=== PATIENT | female | born 1955 | race Caucasian/White ===

== ENCOUNTER 2017-05-26 13:15 | Inpatient (IN) | payer OTHER ==
[~2017-05-26] VITALS: Ht 162.6 cm; Wt 90.7 kg
[~2017-05-26 13:15] MED LIST: BYSTOLIC10 M1 PO; CRESTOR10 M1 PO; GOOD SENSE ASP325 MG PO; PAROXETINE HCL40 M1 PO; PERCOCET 325 MG1 TA2 PO; VALIUM5 M1 PO
--- NOTE | 2017-05-26 13:25 | ED DYSPNEA/ASTHMA COMPLAINT ---
History of Present Illness General Chief Complaint: Dyspnea (COPD, CHF, Other) Stated Complaint: FLU VS PNA Source: patient, EMS Exam Limitations: no limitations Vital Signs & Intake/Output Vital Signs & Intake/Output ED Intake and Output 05/29 0000 05/28 1200 Intake Total 0 Output Total Balance 0 Intake, IV 0 Intake, Oral 0 Number 0 Bowel Movements Allergies Coded Allergies: NO KNOWN ALLERGIES (07/17/11) Reconcile Medications Nebivolol HCl (Bystolic) 10 MG TABLET 1 TAB PO DAILY HEART (Reported) Nicotine (Nicotine Patch) 14 MG/24 HOUR PATCH.TD24 14 MG TOP DAILY Smoking cessation . Nicotine (Nicorelief) 2 MG GUM 2 MG PO Q2 HRS NEEDED PRN NICOTINE CRAVING . Oseltamivir Phosphate (Tamiflu) 75 MG CAPSULE 75 MG PO BID Flu . Paroxetine HCl 40 MG TABLET 1 TAB PO DAILY DEPRESSION (Reported) Prednisone 10 MG TABLET 1 TAB PO DAILY Steroid taper Please take 30mg on 05/29/17, 20mg on 05/30/17, and 10mg on 05/31/17, then stop Rosuvastatin Calcium (Crestor) 10 MG TABLET 1 TAB PO DAILY CHOLESTEROL ( Reported) Triage Note: PT BIBA FROM URGENT CARE [place] WITH C/O INCREASED SOB, FEVERS, N/V/D. AT [facility]ALK-[facility], PT DX POSITIVE FOR INFLUENZA B, SENT TO ED TO R/O PNA. PT ARRIVES A&O x4, VISIBLY DYSPNEIC, O2 SAT IN MID-UPPER 90s WHILE ON 6L NC. NO CYANOSIS Triage Nurses Notes Reviewed? yes Onset: Gradual Duration: day(s): Timing: recent history Severity: moderate HPI: 61YO female with hx of HTN BIBA from urgent care for dyspnea. Patient went to urgent care for evaluation of dyspnea, cough, congestion, nausea, body aches, fevers. Patient also had one episode of vomiting. Patient reports loose stools however no diarrhea. Patient is a current smoker, 1 pack per day x 45 years. Patient reports some mild dyspnea over the past several weeks however with her current symptoms she has been having worsening dyspnea. She was at urgent care today the patient was positive for influenza B, was hypoxic and sent here for further evaluation of possible pneumonia. Patient arrives on 6L O2 via NC with O2 sat in 90s. The patient denies chest pain, presyncope, lower leg swelling, hemoptysis. Past History Medical History Any Pertinent Medical History? see below for history Cardiovascular: hypertension History of MRSA: No History of VRE: No History of CDIFF: No Surgical History Surgical History: N Psychosocial History Who do you live with Spouse What is your primary language Stateless Family History Hx Contributory? No Review of Systems Review of Systems Constitutional: Reports: see HPI. EENTM: Reports: see HPI. Respiratory: Reports: see HPI. Cardiovascular: Reports: no symptoms. GI: Reports: see HPI. Genitourinary: Reports: no symptoms. Musculoskeletal: Reports: no symptoms. Skin: Reports: no symptoms. Neurological/Psychological: Reports: no symptoms. Hematologic/Endocrine: Reports: no symptoms. Immunologic/Allergic: Reports: no symptoms. All Other Systems: Reviewed and Negative Physical Exam Physical Exam General Appearance: well developed/nourished, no apparent distress, alert, awake Head: atraumatic, normal appearance Eyes: Bilateral: normal appearance. Ears, Nose, Throat: hearing grossly normal Neck: normal inspection, supple, full range of motion Respiratory: diminshed breath sounds bilateral lower lung guerra with crackles, scattered expiratory wheezes Cardiovascular: regular rate/rhythm Gastrointestinal: normal bowel sounds, soft, non-tender, no organomegaly Extremities: normal inspection, normal range of motion, no edema Neurologic/Psych: awake, alert, oriented x 3 Skin: intact, normal color, warm/dry Core Measures ACS in differential dx? Yes CVA/TIA Diagnosis No Sepsis Present: No Sepsis Focused Exam Completed? No Progress Differential Diagnosis: asthma, AMI, bronchitis, costochondritis, CHF, COPD, musculoskeletal pain, pericarditis, pulmonary embolism, pneumonia, pneumothorax, unstable angina, influenza Plan of Care: Orders Procedure Date/time Status AEROSOL CHG 05/28 UNK Complete OXYGEN 05/28 UNK Complete OXYGEN DAILY CHARGE 05/28 UNK Complete Patient had positive influenza B per urgent care. Rapid flu swab in the emergency department is negative. Patient's chest x-ray without evidence for pneumonia. This patient is not O2 dependent at home however is requiring supplemental oxygen here in the ED between 4-6 L. Patient desaturates below 90% at rest on room air. This patient requires supplemental oxygen, respiratory treatments, possible IV steroids/antibiotics, pulmonology consult. Discussed this patient with hospitalist Dr. Jerez regarding her general medicine admission. Diagnostic Imaging: Viewed by Me: Radiology Read. Discussed w/RAD: Radiology Read. CXR Impression: PATIENT: MALA NORRIS PRESENT AGE: 61 PATIENT ACCOUNT NO: [id number] : 59 LOCATION: [facility] ORDERING PHYSICIAN: Jayashree REYES SERVICE DATE: 05/26/17 EXAM TYPE: RAD - XRY-CHEST XRAY, TWO VIEWS EXAMINATION: XR CHEST CLINICAL INFORMATION: Dyspnea, hypoxia COMPARISON: Multiple priors, most recent from 09/19/2013. TECHNIQUE: 2 views of the chest were obtained. FINDINGS: Unchanged elevation of the right hemidiaphragm. Minimal right basilar atelectasis again seen. No consolidative airspace opacity. No overt congestive changes. No pleural effusion or pneumothorax. Similar smooth pleural thickening of the right apex. Heart size within normal limits. Healed rib fractures again seen. Multilevel degenerative changes of the spine. IMPRESSION: No evidence of acute pulmonary disease. DICTATED BY: Alicia Vang MD DATE/TIME DICTATED:05/26/171426 ENTRY SPECIALIST:KAN DATE/TIME TRANSCRIBED:05/26/171426 CONFIDENTIAL, DO NOT COPY WITHOUT APPROPRIATE AUTHORIZATION. <Electronically signed in Other Vendor System> SIGNED BY: Alicia Vang MD 05/26/17 1430 Initial ED EKG: sinus rhythm @ 85bpm, nonspecific ST changes Prior EKG: unchanged (09/19/13) Departure Departure Disposition: STILL A PATIENT Condition: Stable Clinical Impression Primary Impression: Hypoxia Secondary Impressions: Influenza B Referrals: Carol FERRIS,Bert Reilly (PCP/Family) Departure Forms: Customer Survey General Discharge Information Prescriptions: Current Visit Scripts Oseltamivir Phosphate (Tamiflu) 75 MG PO BID #6 CAP . Nicotine (Nicotine Patch) 14 MG TOP DAILY #30 PATCH . Nicotine (Nicorelief) 2 MG PO Q2 HRS NEEDED PRN NICOTINE CRAVING #120 GUM . Prednisone 1 TAB PO DAILY #6 TAB Please take 30mg on 05/29/17, 20mg on 05/30/17, and 10mg on 05/31/17, then stop Admission Note Spoke With: Magdaleno Jerez MD Documentation of Exam: Documentation of any treatments & extenuating circumstances including Concerns Regarding Discharge (functional status, medication knowledge or non-compliance, living conditions, etc.) that warrant an admission rather than observation: [ Hypoxia on room air at rest requiring between 4-6L supplemental oxygen. Positive influenza swab prior to arrival. This patient requires respiratory therapy, pulmonology consult, supplemental oxygen, possible IV steroids, premature discharge would be medically unsafe] Critical Care Note Critical Care Note Critical Care Time: non-applicable
[2017-05-26 13:40] LABS: ABSOLUTE BASOPHIL COUNT 0 /CUMM (0.0-0.2); ABSOLUTE EOSINOPHIL COUNT 0 /CUMM (0.0-0.7); ABSOLUTE GRANULOCYTE CT 3.7 /CUMM (1.4-6.5); ABSOLUTE LYMPH COUNT 0.7 /CUMM (1.2-3.4); ABSOLUTE MONOCYTE COUNT 0.5 /CUMM (0.10-0.60); BASOPHIL % 0.4 % (0.0-2.0); EOSINOPHIL % 0.4 % (0-5); GRANULOCYTE % 75.1 % (42.2-75.2); MEAN CORPUSCULAR HGB 29.7 PG (27.0-31.0); MEAN CORPUSCULAR HGB CONC 33.7 G/DL (33.0-37.0); MEAN CORPUSCULAR VOLUME 88.2 FL (81.0-99.0); MEAN PLATELET VOLUME 9.4 FL (7.4-10.4); PLATELET COUNT 231 /CUMM (130-400); RBC DISTRIBUTION WIDTH 13.9 % (11.5-14.5); RED BLOOD CELL CT 4.76 /CUMM (4.20-5.40); WHITE BLOOD CELL COUNT 4.9 /CUMM (4.8-10.8)
--- NOTE | 2017-05-26 14:36 | RADIOLOGY REPORT ---
EXAMINATION: XR CHEST CLINICAL INFORMATION: Dyspnea, hypoxia COMPARISON: Multiple priors, most recent from 09/19/2013. TECHNIQUE: 2 views of the chest were obtained. FINDINGS: Unchanged elevation of the right hemidiaphragm. Minimal right basilar atelectasis again seen. No consolidative airspace opacity. No overt congestive changes. No pleural effusion or pneumothorax. Similar smooth pleural thickening of the right apex. Heart size within normal limits. Healed rib fractures again seen. Multilevel degenerative changes of the spine. IMPRESSION: No evidence of acute pulmonary disease.
--- NOTE | 2017-05-26 17:34 | History & Physical ---
Jethro Barber MD 05/26/17 1733: General Information and HPI History of Present Illness: Ms. Ortega is a 61-year-old female with past medical history of hypertension, lipidemia, and anxiety who presents from urgent care with positive influenza B test. Patient developed symptoms starting on Thursday. These included fever, chills, chest breath, productive cough, nasal congestion, runny nose, fatigue, arthralgias, and myalgias. She doesn't have any chest pain, nausea, vomiting, diarrhea, dysuria, rash, or headache. She went to the urgent care clinic today because of her symptoms and tested positive for the influenza B. They sent her here for further evaluation. She is a current smoker, 1 pack per day, 43 years. No alcohol or drug use. Allergies/Medications Allergies: Coded Allergies: NO KNOWN ALLERGIES (07/17/11) Home Med list Nebivolol HCl (Bystolic) 10 MG TABLET 1 TAB PO DAILY HEART (Reported) Paroxetine HCl 40 MG TABLET 1 TAB PO DAILY DEPRESSION (Reported) Rosuvastatin Calcium (Crestor) 10 MG TABLET 1 TAB PO DAILY CHOLESTEROL ( Reported) Past History Travel History Traveled to [place] past 21 day No Medical History Neurological: NONE EENT: NONE Cardiovascular: hyperlipidemia Respiratory: NONE Gastrointestinal: NONE Hepatic: NONE Renal: NONE Musculoskeletal: NONE Psychiatric: NONE Endocrine: NONE Blood Disorders: NONE Cancer(s): NONE History of MRSA: No History of VRE: No History of CDIFF: No Surgical History Surgical History: N Past Family/Social History Psychosocial History Primary Language: Romansh Smoking Status: Current Everyday Smoker ETOH Use: occasional use Illicit Drug Use: denies illicit drug use Review of Systems Review of Systems Constitutional: Reports: see HPI. EENTM: Reports: see HPI. Cardiovascular: Reports: no symptoms. Respiratory: Reports: see HPI. GI: Reports: no symptoms. Genitourinary: Reports: no symptoms. Musculoskeletal: Reports: no symptoms. Skin: Reports: no symptoms. Neurological/Psychological: Reports: no symptoms. Hematologic/Endocrine: Reports: no symptoms. Immunologic/Allergic: Reports: no symptoms. All Other Systems: Reviewed and Negative Exam & Diagnostic Data Last 24 Hrs of Vital Signs/I&O Vital Signs Date Time Temp Pulse Resp B/P B/P Pulse O2 O2 Flow FiO2 Mean Ox Delivery Rate 05/26 1822 101.0 83 20 117/55 94 Nasal 2.0L Cannula 05/26 1541 97.1 87 18 124/62 93 Nasal 2.0L Cannula 05/26 1530 99.9 88 16 121/56 96 Nasal 2.0L Cannula 05/26 1411 92 Nasal 2.0L Cannula 05/26 1327 95 Nasal 2.0L Cannula 05/26 1320 99.9 84 22 116/74 89 Room Air Intake & Output 05/26 1600 05/26 0800 05/26 0000 Intake Total Output Total Balance Patient 90.718 kg Weight Weight Reported by Patient Measurement Method Physical Exam General Appearance Alert, Oriented X3, Cooperative, No Acute Distress Skin No Rashes Sepsis Skin Exam (color): Normal for Ethnicity HEENT Atraumatic Cardiovascular Regular Rate, Normal S1, Normal S2 Lungs crackles and wheezing Abdomen Normal Bowel Sounds, Soft, No Tenderness Neurological Normal Speech Extremities 1+ pitting edema bilaterally Last 24 Hrs of Labs/Jose Roberto: Laboratory Tests 05/26/17 1624: Lactic Acid Cancelled 05/26/17 1435: Anion Gap 12, Estimated GFR > 60, BUN/Creatinine Ratio 20.0, Glucose 99, Lactic Acid 0.9, Calcium 9.0, Total Bilirubin 0.2, AST 30, ALT 41, Alkaline Phosphatase 95, Troponin I < 0.01, Total Protein 6.5, Albumin 3.7, Globulin 2.8, Albumin/ Globulin Ratio 1.3 05/26/17 1330: CBC w Diff NO MAN DIFF REQ, RBC 4.76, MCV 88.2, MCH 29.7, MCHC 33.7, RDW 13.9, MPV 9.4, Gran % 75.1, Lymphocytes % 13.4 L, Monocytes % 10.7 H, Eosinophils % 0.4, Basophils % 0.4, Absolute Granulocytes 3.7, Absolute Lymphocytes 0.7 L, Absolute Monocytes 0.5, Absolute Eosinophils 0, Absolute Basophils 0 Microbiology 05/26 1520 NASOPHARYN: Influenza Virus A & B Rapid Smear - COMP Assessment/Plan Assessment: Ms. Ortega is a 61-year-old female with past medical history of hypertension, lipidemia, and anxiety who presents from urgent care with positive influenza B test. On presentation, vital signs were T 99.9, HR 84, RR 22, BP 116/74, saturating 89 % on room air. Labs were completely normal. Chest x-ray showed no acute process. She was treated with diltiazem, ipratropium, and albuterol in the emergency room. She will be admitted to general medicine and treated for the following problems: 1. Influenza B infection 2. Acute hypoxic respiratory failure #Influenza B infection: Patient desaturated to 89% on room air requiring oxygen therapy. She does have some wheezing on exam and likely has an element of COPD. -Methylprednisone 40 mg every 8H -Ostelmivir -Sputum culture -Oxygen therapy -Patient interested in smoking cessation counseling #Chronic medical problem: -Continue home medications DVT prophylaxis with enoxaparin Heart healthy diet Full code As Ranked By This Provider Problem List: 1. Influenza B Core Measures/Misc (12/21) Acute Coronary Syndrome ACS Diagnosis: No Congestive Heart Failure Congestive Heart Failure Diagnosis No Cerebrovascular Accident CVA/TIA Diagnosis: No VTE (View Protocol) VTE Risk Factors Age>40 No Mechanical VTE Prophylaxis d/t N/A MechProphylax Ordered No VTE Pharm Prophylaxis d/t NA PharmProphylax ordered Sepsis (View protocol) Sepsis Present: No Will Andrews 05/26/17 1909: Resident Review Statement Resident Statement: examined this patient, discussed with manager internet retails sales, agreed with manager internet retails sales, discussed with family, reviewed EMR data (avail), discussed with nursing , discussed with case mgmt, reviewed images, amended to note Other Findings: This is a 61-year-old female with past medical history significant for hypertension, depression, hyperlipidemia, [id number] history of smoking, severe spinal stenosis, lumbar disc herniation status post bilateral decompressive laminectomy, discectomy was brought in by ambulance from urgent care after she was found to be flu positive at urgent care. Patient reports ongoing fever, chills, shortness of breath, productive cough, nasal congestion, muscle aches and joint pains since last Thursday. She also reports an episode of nausea and vomiting last night. Patient states loose watery stools for 2 days. She denies any abdominal pain, nausea, vomiting, change in urinary habits. She denies any chest pain, sick contacts, travel history. off note patient reports [id number] smoking history, 1 pack per day. Denies alcohol abuse, illicit drug abuse. Vitals MAXIMUM TEMPERATURE 101, respiratory rate 22, heart rate 84, blood pressure 106/67, saturating at 93 on 2 L. HEENT within normal limits, S1 and S2 normal, no murmurs, bilateral wheezes, abdomen soft nontender nondistended. Bilateral lower extremities no edema, no cyanosis, no clubbing. Vital CBCs and BEP normal limits Lactic acid normal LFTs normal Troponin normal flu negative in the ER however records show that she was positive at urgent care. Chest x-ray no pneumonia was found. EKG sinus rhythm, nonspecific T-wave changes. Received TRC nebs in the emergency room. - 1. Acute hypoxic respiratory failure from flu Patient presented with fever, chills, short of breath, productive cough, nasal congestion, joint pains and muscle aches for 4 days. She went to urgent care this afternoon, flu was positive. MAXIMUM TEMPERATURE 101 with tachypnea. Blood pressure normal. She is requiring 2 L oxygen supplementation. She is febrile with a normal leukocyte count. Flu swab was negative in the emergency room. However given her hypoxia, fever- will treat her for flu. * Admit to general medicine * Monitor vitals every shift * Maintain oxygen saturation above 88 * Provide supplemental oxygen * Total respiratory care * Nebulizer treatments * IV methylprednisolone 40 every 8hrs * Tamiflu 75 mg twice daily for 5 days. * Closely monitor fever, leukocytosis 2. Hypertension Continue home medication Bystolic 10 mg daily 3. Hyperlipidemia Continue Lipitor 10 mg daily 4. Depression Continue paroxetine 40 mg daily 5. Current smoker Smokes one pack per day. She has [id number] smoking history. Will provide outpatient pulmonology referral She is full code DVT prophylaxis subcutaneous Lovenox regular diet Pain pathway orders Magdaleno Jerez MD 05/26/17 2325: Attending MD Review Statement Attending Statement Attending MD Statement: examined this patient, discuss w/resident/PA/PRODUCT TESTER, agreed w/resident/PA/PRODUCT TESTER, reviewed EMR data (avail) Attending Assessment/Plan: Agree with resident plan. Will treat for Influenza B with Tamiflu, Solumedrol for wheezing and hypoxia, continue home medications, DVT PPx
[2017-05-26 19:18] VITALS: BP 122/84
[2017-05-26 21:56] VITALS: BP 110/66
[2017-05-27 06:25] VITALS: BP 138/67
--- NOTE | 2017-05-27 06:48 | PN- Housestaff ---
Sunil FERRIS,Jethro 05/27/17 0647: Subjective Follow-up For: Influenza B Subjective: Patient presented last night. She had fever to 101.0, subsequently defervesced. This morning, she feels slightly improved, breathing is better, still coughing. Review of Systems Constitutional: Reports: no symptoms. EENTM: Reports: no symptoms. Cardiovascular: Reports: no symptoms. Respiratory: Reports: see HPI. Gastrointestinal: Reports: no symptoms. Genitourinary: Reports: no symptoms. Musculoskeletal: Reports: no symptoms. Skin: Reports: no symptoms. Neurological/Psychological: Reports: no symptoms. Hematologic/Endocrine: Reports: no symptoms. Immunologic/Allergic: Reports: no symptoms. Objective Last 24 Hrs of Vital Signs/I&O Vital Signs Date Time Temp Pulse Resp B/P B/P Pulse O2 O2 Flow FiO2 Mean Ox Delivery Rate 05/27 0625 98.3 55 20 138/67 93 05/27 0000 95 Nasal 2.0L Cannula 05/26 2212 Nasal 2.0L Cannula 05/26 2156 98.7 61 20 110/66 94 05/26 1918 99.4 97 18 122/84 93 05/26 1850 96 Nasal 2.0L Cannula 05/26 1850 94 Nasal 2.0L Cannula 05/26 1830 101.0 05/26 1822 101.0 83 20 117/55 94 Nasal 2.0L Cannula 05/26 1541 97.1 87 18 124/62 93 Nasal 2.0L Cannula 05/26 1530 99.9 88 16 121/56 96 Nasal 2.0L Cannula 05/26 1411 92 Nasal 2.0L Cannula 05/26 1327 95 Nasal 2.0L Cannula 05/26 1320 99.9 84 22 116/74 89 Room Air Intake & Output 05/27 0800 05/27 0000 05/26 1600 Intake Total 240 470 Output Total 300 Balance 240 170 Intake, IV 20 Intake, Oral 240 450 Number 0 Bowel Movements Output, Urine 300 Patient 90.718 kg 90.718 kg Weight Weight Reported by Patient Reported by Patient Measurement Method Physical Exam General Appearance: Alert, Oriented X3, Cooperative, No Acute Distress Cardiovascular: Regular Rate, Normal S1, Normal S2 Lungs: mild wheezing Abdomen: Normal Bowel Sounds, Soft, No Tenderness Neurological: Normal Speech Extremities: Normal Pulses Current Medications: Current Medications Sig/Bernice Start time Last Medication Dose Route Stop Time Status Admin Acetaminophen 0 .STK-MED ONE 05/26 1832 DC IV Acetaminophen 650 MG Q6P PRN 05/26 1800 AC PO Acetaminophen 1,000 MG Q6P PRN 05/26 1800 AC 05/26 IV 1830 Albuterol Sulfate 3 ML BID 05/27 1000 AC 05/26 INH 2200 Albuterol Sulfate 3 ML Q6P PRN 05/26 1800 AC INH Albuterol Sulfate 3 ML ONCE ONE 05/26 1400 DC 05/26 INH 05/26 1401 1410 Atorvastatin Calcium 10 MG 1700 05/27 1700 AC PO Diltiazem HCl 120 MG ONCE ONE 05/26 1700 DC 05/26 PO 05/26 1701 1713 Enoxaparin Sodium 40 MG DAILY 05/27 1000 AC SC Influenza Virus 0.5 ML ONCE ONE 05/27 1000 AC Vaccine IM 05/27 1001 Ipratropium [place] 2.5 ML ONCE ONE 05/26 1400 DC 05/26 INH 05/26 1401 1410 Methylprednisolone 40 MG Q8 05/26 1915 AC 05/27 IV 0527 Nebivolol 10 MG DAILY 05/27 1000 AC PO Oseltamivir Phosphate 75 MG BID 05/26 2200 AC 05/26 PO 05/30 2159 2220 Paroxetine HCl 40 MG DAILY 05/26 1800 AC 05/26 PO 1820 Tiotropium [place] 1 PUF DAILY 05/27 1000 AC INH Last 24 Hrs of Lab/Jose Roberto Results Last 24 Hrs of Labs/Mics: Laboratory Tests 05/26/17 1624: Lactic Acid Cancelled 05/26/17 1435: Anion Gap 12, Estimated GFR > 60, BUN/Creatinine Ratio 20.0, Glucose 99, Lactic Acid 0.9, Calcium 9.0, Total Bilirubin 0.2, AST 30, ALT 41, Alkaline Phosphatase 95, Troponin I < 0.01, Total Protein 6.5, Albumin 3.7, Globulin 2.8, Albumin/ Globulin Ratio 1.3 05/26/17 1330: CBC w Diff NO MAN DIFF REQ, RBC 4.76, MCV 88.2, MCH 29.7, MCHC 33.7, RDW 13.9, MPV 9.4, Gran % 75.1, Lymphocytes % 13.4 L, Monocytes % 10.7 H, Eosinophils % 0.4, Basophils % 0.4, Absolute Granulocytes 3.7, Absolute Lymphocytes 0.7 L, Absolute Monocytes 0.5, Absolute Eosinophils 0, Absolute Basophils 0 Microbiology 05/27 0540 LOWER RESP: Respiratory Culture - RECD 05/27 0540 LOWER RESP: Gram Stain - RECD 05/26 1520 NASOPHARYN: Influenza Virus A & B Rapid Smear - COMP Assessment/Plan Assessment: Ms. Ortega is a 61-year-old female with past medical history of hypertension, lipidemia, and anxiety who presents from urgent care with positive influenza B test. Problem List: 1. Influenza B infection 2. Acute hypoxic respiratory failure #Influenza B infection: Patient desaturated to 89% on room air requiring oxygen therapy. She does have some wheezing on exam and likely has an element of COPD. today she is improving. -Methylprednisone 40 mg every 12H -Ostelmivir -Sputum culture -Oxygen therapy -Patient interested in smoking cessation counseling: Nicotine patch and gum #Chronic medical problem: -Continue home medications DVT prophylaxis with enoxaparin Heart healthy diet Full code Problem List: 1. Influenza B Pain Ratin Pain Location: no Pain Goal: Remain pain free Pain Plan: see a/p Tomorrow's Labs & Rationales: no Magdaleno Jerez MD 05/27/17 1114: Attending MD Review Statement Attending Statement Attending MD Statement: examined this patient, discuss w/resident/PA/WIG COMBER, agreed w/resident/PA/WIG COMBER, reviewed EMR data (avail) Attending Assessment/Plan: Agree with resident plan. Will treat for Influenza B with Tamiflu, Solumedrol for wheezing and hypoxia, continue home medications, DVT PPx, anticipated discharge tomorrow
[2017-05-27 08:00] LABS: ABSOLUTE BASOPHIL COUNT 0 /CUMM (0.0-0.2); ABSOLUTE EOSINOPHIL COUNT 0 /CUMM (0.0-0.7); ABSOLUTE GRANULOCYTE CT 3.3 /CUMM (1.4-6.5); ABSOLUTE LYMPH COUNT 0.5 /CUMM (1.2-3.4); ABSOLUTE MONOCYTE COUNT 0.1 /CUMM (0.10-0.60); BASOPHIL % 0 % (0.0-2.0); EOSINOPHIL % 0.1 % (0-5); GRANULOCYTE % 83.9 % (42.2-75.2); HEMATOCRIT 42.2 % (37-47); MEAN CORPUSCULAR HGB 29.6 PG (27.0-31.0); MEAN CORPUSCULAR HGB CONC 33.2 G/DL (33.0-37.0); MEAN CORPUSCULAR VOLUME 89.1 FL (81.0-99.0); MEAN PLATELET VOLUME 9.6 FL (7.4-10.4); PLATELET COUNT 193 /CUMM (130-400); RBC DISTRIBUTION WIDTH 13.8 % (11.5-14.5); RED BLOOD CELL CT 4.74 /CUMM (4.20-5.40); WHITE BLOOD CELL COUNT 3.9 /CUMM (4.8-10.8)
[2017-05-27] MEDS ORDERED: NICOTINE PATCH1 EAC2 TOP (11:34)
[2017-05-27] MEDS ORDERED: NICORELIEF2 MG PO (11:34)
[2017-05-27 13:31] VITALS: BP 118/76
[2017-05-27 21:42] VITALS: BP 104/70
[2017-05-28] MEDS ORDERED: PREDNISONE10 M2 PO ×2 (06:49→10:34)
[2017-05-28] MEDS ORDERED: TAMIFLU75 M1 PO ×2 (06:49→10:34)
--- NOTE | 2017-05-28 06:52 | PN- Housestaff ---
Subjective Follow-up For: Influenza Subjective: No overnight events. She slept very well. Breathing has improved, some coughing and nicotine cravings but otherwise ok. Review of Systems Constitutional: Reports: no symptoms. EENTM: Reports: no symptoms. Cardiovascular: Reports: no symptoms. Respiratory: Reports: see HPI. Gastrointestinal: Reports: no symptoms. Genitourinary: Reports: no symptoms. Musculoskeletal: Reports: no symptoms. Skin: Reports: no symptoms. Neurological/Psychological: Reports: see HPI. Hematologic/Endocrine: Reports: no symptoms. Immunologic/Allergic: Reports: no symptoms. Objective Last 24 Hrs of Vital Signs/I&O Vital Signs Date Time Temp Pulse Resp B/P B/P Pulse O2 O2 Flow FiO2 Mean Ox Delivery Rate 05/27 2142 98.2 62 19 104/70 96 Nasal 2.0L Cannula 05/275 94 Nasal 2.0L Cannula 05/27 1331 98.7 76 18 118/76 95 Nasal 1.0L Cannula 05/27 0800 Nasal 2.0L Cannula Intake & Output 05/28 0800 05/28 0000 05/27 1600 Intake Total 270 650 Output Total Balance 270 650 Intake, IV 30 Intake, Oral 240 650 Number 0 Bowel Movements Physical Exam General Appearance: Alert, Oriented X3, Cooperative, No Acute Distress Cardiovascular: Regular Rate, Normal S1, Normal S2 Lungs: mild wheezing and crackles Abdomen: Normal Bowel Sounds, Soft, No Tenderness Extremities: No Edema, Normal Pulses, No Tenderness/Swelling Current Medications: Current Medications Sig/Bernice Start time Last Medication Dose Route Stop Time Status Admin Acetaminophen 650 MG .STK-MED ONE 05/27 1618 DC PO 05/27 1619 Acetaminophen 650 MG Q6P PRN 05/26 1800 AC 05/27 PO 1619 Acetaminophen 1,000 MG Q6P PRN 05/26 1800 AC 05/26 IV 1830 Albuterol Sulfate 3 ML BID 05/27 1000 AC 05/27 INH 2045 Albuterol Sulfate 3 ML Q6P PRN 05/26 1800 AC INH Atorvastatin Calcium 10 MG 1700 05/27 1700 AC 05/27 PO 1617 Enoxaparin Sodium 40 MG DAILY 05/27 1000 AC 05/27 SC 1023 Influenza Virus 0.5 ML ONCE ONE 05/27 1000 DC Vaccine IM 05/27 1001 Methylprednisolone 40 MG Q12 05/27 2200 DC 05/27 IV 205 Methylprednisolone 40 MG Q8 05/26 1915 DC 05/27 IV 0527 Nebivolol 10 MG DAILY 05/27 1000 AC 05/27 PO 1036 Nicotine 14 MG DAILY 05/27 1000 AC 05/27 TOP 1023 Nicotine 2 MG Q2 HRS NEEDED PRN 05/27 0915 AC PO Oseltamivir Phosphate 75 MG BID 05/26 2200 AC 05/27 PO 05/30 2159 205 Paroxetine HCl 40 MG DAILY 05/26 1800 AC 05/27 PO 1036 Prednisone 40 MG DAILY 05/28 1000 UNVr PO 06/01 0959 Tiotropium [place] 1 PUF DAILY 05/27 1000 AC 05/27 INH 1024 Assessment/Plan Assessment: Ms. Ortega is a 61-year-old female with past medical history of hypertension, lipidemia, and anxiety who presents from urgent care with positive influenza B test. Problem List: 1. Influenza B infection 2. Acute hypoxic respiratory failure #Influenza B infection: Patient desaturated to 89% on room air requiring oxygen therapy. She does have some wheezing on exam and likely has an element of COPD. today she continues to imrpove. -Taper steroids -Ostelmivir, day 3/5 -Sputum culture -Oxygen therapy, taper -Patient interested in smoking cessation counseling: Nicotine patch and gum #Chronic medical problem: -Continue home medications DVT prophylaxis with enoxaparin Heart healthy diet Full code Problem List: 1. Influenza B Pain Ratin Pain Location: no Pain Goal: Remain pain free Pain Plan: no Tomorrow's Labs & Rationales: no
[2017-05-28 07:04] VITALS: BP 108/68
[2017-05-28 09:31] VITALS: BP 108/68
--- NOTE | 2017-05-28 10:29 | Discharge Summary ---
Visit Information Visit Dates Admission Date: 05/26/17 Discharge Date: 05/28/17 Hospital Course Course Attending Physician: Magdaleno Jerez MD Primary Care Physician: Bert Medina MD Hospital Course: Ms. Ortega is a 61-year-old female with past medical history of hypertension, lipidemia, and anxiety who presents from urgent care with positive influenza B test. On presentation, vital signs were T 99.9, HR 84, RR 22, BP 116/74, saturating 89 % on room air. Labs were completely normal. Chest x-ray showed no acute process. She was treated with diltiazem, ipratropium, and albuterol in the emergency room. She was admitted to general medicine and treated for the following problems: 1. Influenza B infection 2. Acute hypoxic respiratory failure #Influenza B infection: Patient presented with signs and symptoms of influenza and tested positive for infuluenza B at an outside urgent care clinic. Influenza test was here was negative however. She was treated with ostelmivir as well as steroids and has improved. She should continue the steroid taper and ostelmivir as prescribed. She can also follow-up with pulmonology given that she is a current smoker and desires smoking cessation. #Chronic medical problem: Her home medications were continued. Allergies: Coded Allergies: NO KNOWN ALLERGIES (07/17/11) Disposition Summary Disposition Principal Diagnosis: 1. Influenza B infection Additional Diagnosis: 2. Acute hypoxic respiratory failure Discharge Disposition: home or self care Discharge Instructions General Discharge Information Code Status: Full Code Patient's Diet: Regular diet Patient's Activity: As tolerated Follow-Up Instructions/Appts: Please take all medications as directed. Please follow-up with primary care. Please follow-up with pulmonology. Medications at Discharge Discharge Medications: Continue taking these medications: Nebivolol HCl (Bystolic) 10 MG TABLET 1 Tablet ORAL DAILY Comments: Last Taken:05/28/17 Time:0930AM Rosuvastatin Calcium (Crestor) 10 MG TABLET 1 Tablet ORAL DAILY Comments: LIPITOR LAST GIVEN 05/27/17 @1600PM Paroxetine HCl (Paroxetine HCl) 40 MG TABLET 1 Tablet ORAL DAILY Comments: Last Taken: 05/28/17 Time: 0930AM Start taking the following new medications: Oseltamivir Phosphate (Tamiflu) 75 MG CAPSULE 75 Milligram ORAL TWICE DAILY Qty = 6 No Refills Instructions: . Comments: Last Taken: 05/28/17 Time: 0930AM Nicotine (Nicotine Patch) 14 MG/24 HOUR PATCH.TD24 14 Milligram On the skin DAILY Qty = 30 No Refills Instructions: . Comments: Last Taken:05/28/17 Time: 0930AM Nicotine (Nicorelief) 2 MG GUM 2 Milligram ORAL EVERY 2 HOURS NEEDED as needed for NICOTINE CRAVING Qty = 120 No Refills Instructions: . Comments: Last Taken: 05/28/17 Time: 0930AM Prednisone (Prednisone) 10 MG TABLET 1 Tablet ORAL DAILY Qty = 6 No Refills Instructions: Please take 30mg on 05/29/17, 20mg on 05/30/17, and 10mg on 05/31/17, then stop Comments: PREDNISONE 40MG 0930AM 05/28/17 Copies To: Carol FERRIS,Bert Reilly; Singh FERRIS,Napoleon
--- NOTE | 2017-05-28 10:29 | Patient Discharge Instructions ---
Discharge Instructions General Discharge Information You were seen/treated for: Influenza Watch for these problems: Fever, chest pain, shortness of breath Special Instructions: Please take all medications as directed. Please follow up with pulmonology and primary care. Diet Continue normal diet: Yes Activity Full Activity/No Limits: Yes Acute Coronary Syndrome Inclusion Criteria At DC or during hospital stay patient has or had the following: ACS DIAGNOSIS No Discharge Core Measures Meds if any: Prescribed or Continued at Discharge Meds if any: NOT Prescribed or Continued at Discharge Congestive Heart Failure Inclusion Criteria At DC or during hospital stay patient has or had the following: CHF DIAGNOSIS No Discharge Core Measures Meds if any: Prescribed or Continued at Discharge Meds if any: NOT Prescribed or Continued at Discharge Cerebrovascular accident Inclusion Criteria At DC or during hospital stay patient has or had the following: CVA/TIA Diagnosis No Discharge Core Measures Meds if any: Prescribed or Continued at Discharge Meds if any: NOT Prescribed or Continued at Discharge Venous thromboembolism Inclusion Criteria VTE Diagnosis No VTE Type NONE VTE Confirmed by (Test) NONE Discharge Core Measures - Per Current guidelines, there needs to be overlap - treatment for the first 5 days of Warfarin therapy. - If discharged on Warfarin prior to 5 days of - overlap therapy, the patient will need to be - assessed for post discharge needs including - *Post discharge parental anticoagulation - *Warfarin and/or parental anticoagulation education - *Follow up date to check INR post discharge At least 5 days overlap therapy as Inpatient No Meds if any: Prescribed or Continued at Discharge Note: Overlap Therapy is Warfarin and Anticoagulant Meds if any: NOT Prescribed or Continued at Discharge
[2017-05-28] MEDS ORDERED: NICORELIEF2 MG PO (10:34)
[2017-05-28] MEDS ORDERED: NICOTINE PATCH1 EAC2 TOP (10:34)
== END 2017-05-28 12:24 | DRG 193 ==
LOC: ERH 13:15 → ERHI 17:43 → 2NB 17:43 → ENTRNSPT 18:33 → EDTRNSPTSTS 18:36 → EDTRNSPT 18:36 → 2NB 18:46 → CMPTRNSPT 19:01 → ENPENDDIS 05-28 10:38 → ENTRNSPT 05-28 12:13 → 2NB 05-28 12:24 → EDTRNSPT 05-28 12:24 → EDTRNSPTSTS 05-28 12:24 → CMPTRNSPT 05-28 12:30
PROVIDERS: Hospitalist; Physician Assistant
DX: J10.1 Influenza due to other identified influenza virus with other respiratory manifestations (principal); J96.01 Acute respiratory failure with hypoxia; I10 Essential (primary) hypertension; F17.210 Nicotine dependence, cigarettes, uncomplicated; E78.5 Hyperlipidemia, unspecified; F41.9 Anxiety disorder, unspecified
CPT/HCPCS: 36592; 71046; 82436; 87070; 87804; 87804-59; 93005; 93010; J0131; J1650; J2920; J7512